=== PATIENT | male | born 1965 | race American Indian/Alaskan Native ===

== ENCOUNTER 2016-09-28 16:15 | Outpatient (CLI) | payer BC ==
[2016-09-28 17:01] LABS: Blood Urea Nitrogen 19 mg/dL (9-20)
[2016-09-28] MEDS ORDERED: NACL ONE (18:03)
--- NOTE | 2016-09-28 20:33 | Cat Scan Report ---
FINAL REPORT PROCEDURE: CT ABDOMEN PELVIS W CON TECHNIQUE: Computerized axial tomography of the abdomen and pelvis was performed after the IV injection of iodinated nonionic contrast. Oral contrast was also given HISTORY: Abdominal pain. Right lower quadrant abdominal pain. COMPARISON: No prior studies are available for comparison. FINDINGS: Visualized lower thorax: No significant abnormality. Liver: Multiple small scattered hypodensities throughout the liver. Most are less than 1 centimeter. A few are slightly larger. The largest measures 1.5 centimeters. These are sharply marginated and well-defined. They measure slightly above simple fluid. These are probably cysts. The slightly high density of some of them is probably due to the fact that this is a contrast only study which elevates the density.. Spleen: Normal size and attenuation. Gallbladder and biliary system: Normal. Pancreas: Normal. Adrenals: Normal. Kidneys: There is a 3.2 centimeter well-defined hypodensity in the upper right kidney and a 2nd 1.5 centimeter hypodensity adjacent to it. These measures slightly above simple fluid. However this is a contrast only study which may elevate density. Therefore these are probably cysts. There may be a few other tiny cysts in the right kidney. Left kidney appears unremarkable.. GI tract: The bowel appears unremarkable. The appendix is seen and appears normal. There is moderate amount of stool throughout the colon including rectosigmoid area.. Lymph nodes and mesentery: Normal. Vasculature: Normal. Bladder: Normal. Reproductive organs: Normal. Peritoneum: No free fluid. Musculoskeletal structures: No significant abnormality. Other: None. IMPRESSION: 1. There is no CT evidence of distinct acute finding in the abdomen or pelvis. 2. Multiple small probable liver cysts. 3. Several right renal cysts. 4. The appendix is seen and appears normal.
== END 2016-09-28 16:16 | disposition home or self-care (01) ==
LOC: CT 16:15
PROVIDERS: ATTEND Internal Medicine
DX: N28.1 Cyst of kidney, acquired (principal)
CPT/HCPCS: 36415; 74177; 82565; 84520; Q9967